=== PATIENT | male | born 1975 | race Caucasian/White ===

== ENCOUNTER 2020-04-29 12:07 | Emergency (ER) | payer BC ==
[2020-04-29] MEDS ORDERED: DOXYCYCLINE HYCLATE CAP 100 MG CAP PO ONE (12:32)
[2020-04-29] MEDS ORDERED: SULFA/TRIMETH 800/160 (DS) TAB 1 EA TAB PO ONE (12:32)
--- NOTE | 2020-04-29 12:35 | ED.PDOC ---
History of Present Illness - General Chief Complaint: Skin/Abrasion/Tear Stated Complaint: L knee swollen/puffy and reddened Time Seen by Provider: 04/29/20 12:10 Source: patient Exam Limitations: no limitations - History of Present Illness Initial Comments: The patient is a 44-year-old male presented emergency room secondary to swelling to the anterior left knee. The patient sustained an abrasion several days ago and has had increased swelling in that area. He actually was moves the knee joint without any significant difficulty. Pain and erythema seems to be surrounding the patellar bursa. He ambulates well. There is some mild extending erythema. He did take 2 doses of Augmentin yesterday. The erythema has progressed in spite of that. No fevers. Timing/Duration: 24 hours Severity: moderate Improving Factors: nothing Worsening Factors: nothing Associated Symptoms: denies symptoms Allergies/Adverse Reactions: Allergies NO KNOWN ALLERGY Allergy (Verified 04/29/20 12:26) Home Medications: Ambulatory Orders Doxycycline Hyclate 100 mg PO BID #20 tab 04/29/20 Rosuvastatin Calcium 10 mg PO DAILY 04/29/20 Sulfa/Trimeth 800/160 (Ds) Tab [Bactrim DS Tab] 1 ea PO BID #20 tab 04/29/20 Review of Systems - Review of Systems Constitutional: States: no symptoms reported EENTM: States: no symptoms reported Respiratory: States: no symptoms reported Cardiology: States: no symptoms reported Gastrointestinal/Abdominal: States: no symptoms reported Genitourinary: States: no symptoms reported Musculoskeletal: States: no symptoms reported Skin: States: see HPI Neurological: States: no symptoms reported Endocrine: States: no symptoms reported All other Systems: No Change from Baseline Past Medical History (General) - Patient Medical History Hx Stroke: No Hx of COPD: No Hx Cardiac Disorders: No Hx Hypertension: No Hx Diabetes: No Hx Cancer: No Surgical History: other - Vaccination History Hx Tetanus, Diphtheria Vaccination: Yes Hx Influenza Vaccination: Yes Hx Pneumococcal Vaccination: No Immunizations Up to Date: Yes - Social History Hx Tobacco Use: No Hx Alcohol Use: Yes Hx Substance Use: No Hx Substance Use Treatment: No Hx Depression: No - Female History Patient is a Female of Child Bearing Age (10 -59 yrs old): No Patient : No Family Medical History - Family History Mother Family History: No Known Physical Exam - Physical Exam General Appearance: Alert, Comfortable, No apparent distress Eye Exam: bilateral normal Ears, Nose, Throat: hearing grossly normal, normal pharynx Neck: full range of motion, supple Respiratory: no respiratory distress, no accessory muscle use Cardiovascular/Chest: normal peripheral pulses, no edema, other - Regular rate Peripheral Pulses: radial,right: 2+, radial,left: 2+, dorsalis pedis,right: 2+, dorsalis pedis,left: 2+ Rectal Exam: deferred Extremity: normal range of motion, no pedal edema, no calf tenderness, normal capillary refill, other - See history of present illness 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 No evidence of any instability of the knee. Abrasion at about 4:00 on the. It is scabbed ove r. Comments: Vital Signs - 8 hr 04/29/20 04/29/20 12:07 12:18 Temperature 98.5 F Pulse Rate [ 76 76 Pulse ox] Respiratory 16 16 Rate Blood Pressure 138/87 [L brachial] O2 Sat by Pulse 99 Oximetry Progress - Progress Progress: 04/29/20 12:35 The patient is a 44-year-old male presented emergency room secondary to what appears to be a patellar bursitis possibly with underlying infection. This may however be a traumatic bursitis. Fluid was aspirated and will be sent for culture. The patient is going to be placed on Bactrim and doxycycline for the next 10 days as he does not appear to have responded positively to the Augmentin initially. The patient does need to take daily pictures of the area to make sure it is not significantly worsening. If treatment is failing, then he may require IV antibiotic therapy. ER warnings are given. Procedure note: Risk and benefits have been explained and patient agrees to proceed. Area is cleaned with alcohol and an 18-gauge needle is placed into the patellar bursa. Serosanguineous fluid was obtained. No kameron pus. Approximately 8 cc was drawn off. Due to mild continued leakage, Dermabond was placed over the puncture site. Estimated blood loss is 2 cc. Patient tolerated procedure well. [email or web address] Departure - Departure Clinical Impression: Patellar bursitis of left knee Disposition: Discharge to Home or Self Care Condition: Fair Departure Forms: ED Discharge - Pt. Copy, Patient Portal Self Enrollment Instructions: DI for Wound Infection Diet: regular diet Activity: increase activity as tolerated Prescriptions: Doxycycline Hyclate 100 mg PO BID #20 tab Sulfa/Trimeth 800/160 (Ds) Tab [Bactrim DS Tab] 1 ea PO BID #20 tab Home Medications: Ambulatory Orders Doxycycline Hyclate 100 mg PO BID #20 tab 04/29/20 Rosuvastatin Calcium 10 mg PO DAILY 04/29/20 Sulfa/Trimeth 800/160 (Ds) Tab [Bactrim DS Tab] 1 ea PO BID #20 tab 04/29/20 Additional Instructions: The patient is a 44-year-old male presented emergency room secondary to what appears to be a patellar bursitis possibly with underlying infection. This may however be a traumatic bursitis. Fluid was aspirated and will be sent for culture. The patient is going to be placed on Bactrim and doxycycline for the next 10 days as he does not appear to have responded positively to the Augmentin initially. The patient does need to take daily pictures of the area to make sure it is not significantly worsening. If treatment is failing, then he may require IV antibiotic therapy. ER warnings are given.
[2020-04-29 12:39] VITALS: BP 138/87; TEMP 98.5; O2SAT 99
== END 2020-04-29 12:44 | disposition home or self-care (01) ==
LOC: ER 12:07
DX: M70.42 Prepatellar bursitis, left knee (principal)